=== PATIENT | male | born 1960 | race Caucasian/White ===

== ENCOUNTER → 2020-04-02 | Outpatient (CLI) | payer OTHER | LOC: SJCVCIMAG 09:02 | DX: R94.31 Abnormal electrocardiogram [ECG] [EKG] (principal); E78.5 Hyperlipidemia, unspecified; R06.09 Other forms of dyspnea ==

== ENCOUNTER → 2020-05-05 | Outpatient (CLI) | payer OTHER | LOC: CAT 14:35 | PROVIDERS: ATTEND General Practice | DX: Z13.6 Encounter for screening for cardiovascular disorders (principal); I25.10 Atherosclerotic heart disease of native coronary artery without angina pectoris; E78.00 Pure hypercholesterolemia, unspecified ==

== ENCOUNTER → 2021-05-12 | Outpatient (CLI) | payer OTHER | LOC: SJCVCIMAG 07:30 | PROVIDERS: ATTEND Internal Medicine Cardiovascular Disease | DX: I07.1 Rheumatic tricuspid insufficiency (principal); I25.10 Atherosclerotic heart disease of native coronary artery without angina pectoris; I48.91 Unspecified atrial fibrillation; E78.5 Hyperlipidemia, unspecified; R06.00 Dyspnea, unspecified ==

== ENCOUNTER → 2021-05-29 | Outpatient (CLI) | payer OTHER ==
[~2021-05-29] VITALS: Ht 188 cm; Wt 105.9 kg
[~2021-05-29] MED LIST: PACERONE200 MG PO; ROSUVASTATIN CA20 MG PO; TOPROL XL50 MG PO; XARELTO20 MG PO
[2021-05-29 07:18] VITALS: BP 117/76
--- NOTE | 2021-05-29 09:27 | TEE ---
[facility] [place] [address] TRANSESOPHAGEAL ECHOCARDIOGRAM Name: MARLENY TOMAS A [id number] Admission: 05/29/21 Attend Phys: Karthikeyan Valera MD Discharge: Date of : 62 Report #: [id number] THIS REPORT FOR: cc: John Lawton MD, Troy A. MD Lundgren, Craig H. MD [facility] ~ APPROVED REPORT Study performed: 05/29/2021 07:50:46 EXAM: Transesophageal Echocardiogram with Doppler and cardioversion Patient Location: Out-Patient Room #: 9 Status: routine BSA: 2.31 HR: 80 bpm BP: 125/85 mmHg Rhythm: Atrial Fibrillation Other Information Study Quality: Excellent Indications Atrial Fibrillation Echo Enhancing Agent Indication: Rule out Shunt Agent(s) / Amount(s) Used: Agitated Saline 7 cc Procedure After obtaining informed consent, patient underwent transesophageal echo in the [employer]. Type of Sedation : Conscious Sedation Sedation was administered by Mendy Mena RN. Sedation start time: 814 Case end Time: 824 Sedation was achieved intravenously with: Versed (4.5 mg) Fentanyl (50 mcg) Transesophageal probe was inserted and advanced into esophagus without difficulty by Chevy Cardenas MD. Echo enhancement indication: R/O Septal defect. Echo enhancement agent administered: Agitated Saline The JUAN was performed without complications. Synchronized Cardioversion acheived with 120 Joules after 1 [facility] [address] [place] [address] TRANSESOPHAGEAL ECHOCARDIOGRAM Name: MARLENY TOMAS Room #: REG [facility]#: [id number] Admission: 05/29/21 Attend Phys: Karthikeyan Valera Discharge: Date of : 62 Report #: [id number] attempt(s). Rhythm following Synchronized Cardioversion: Normal Sinus Rhythm Throughout the procedure, the blood pressure, pulse oximetry, cardiac rhythm, and rate were monitored. The patient tolerated the procedure without adverse effects. Recovery from conscious sedation was uneventful and vital signs were stable. Left Ventricle Left ventricle is dilated. There is global hypokinesis of the left ventricle. There is normal left ventricular wall thickness. Left ventricular ejection fraction is moderately decreased. LVEF 30-35%. Right Ventricle The right ventricle is normal size. The right ventricular systolic function is normal. Atria Left atrium is mildly dilated. No thrombus is visualized in the left atrium or appendage. No shunting by contrast bubble injection The right atrium size is normal. Aortic Valve The aortic valve is normal in structure. No aortic regurgitation is present. There is no aortic valvular stenosis. Mitral Valve The mitral valve is normal in structure. Mild mitral regurgitation. No evidence of mitral valve stenosis. Tricuspid Valve The tricuspid valve is normal in structure. There is no tricuspid valve regurgitation noted. Pulmonic Valve The pulmonary valve is normal in structure. There is no pulmonic valvular regurgitation. Great Vessels The aortic root is normal in size. The ascending aorta is normal in size. IVC is normal in size and collapses >50% with inspiration. Pericardium There is no pericardial effusion. [facility] [address] [place] [address] TRANSESOPHAGEAL ECHOCARDIOGRAM Name: WARRENMARLENY [facility] [id number] Admission: 05/29/21 Attend Phys: [facility] Discharge: Date of : 62 Report #: [id number] <Conclusion> Left ventricular ejection fraction is moderately decreased. There is global hypokinesis of the left ventricle. LVEF 30-35%. Left atrium is mildly dilated. No thrombus is visualized in the left atrium or appendage. No shunting by contrast bubble injection The aortic valve is normal in structure. No aortic regurgitation or stenosis. The mitral valve is normal in structure. Mild mitral regurgitation. There is no pericardial effusion. Successful cardioversion of atrial fibrillation to sinus rhythm following a single 120 J biphasic synchronous shock <ELECTRONICALLY SIGNED> By: Chevy Cardenas MD, FACC 05/29/21926 6 6 Chevy Cardenas MD, FACC /INF
== END | disposition home or self-care (01) ==
LOC: CATH 06:34
PROVIDERS: ATTEND Internal Medicine Cardiovascular Disease
DX: I48.91 Unspecified atrial fibrillation (principal); I34.9 Nonrheumatic mitral valve disorder, unspecified; R53.83 Other fatigue; I25.10 Atherosclerotic heart disease of native coronary artery without angina pectoris; E78.5 Hyperlipidemia, unspecified; I42.9 Cardiomyopathy, unspecified; Z98.890 Other specified postprocedural states; Z79.899 Other long term (current) drug therapy; Z20.822 Contact with and (suspected) exposure to COVID-19; Z82.49 Family history of ischemic heart disease and other diseases of the circulatory system; Z79.01 Long term (current) use of anticoagulants

== ENCOUNTER → 2021-06-29 | Outpatient (CLI) | payer OTHER ==
[~2021-06-29] VITALS: Ht 188 cm; Wt 102.1 kg
[2021-06-29 07:37] VITALS: BP 106/67
--- NOTE | 2021-06-29 09:50 | EKG ---
[place] [address] [address] [facility] [place] [address] ELECTROCARDIOGRAM REPORT Name: MARLENY TOMAS A Room #: REG [facility]#: [id number] Admission: 06/29/21 Attend Phys: Chevy Cardenas MD, Discharge: Date of : 62 Report #: [id number] [facility] Test Date: 2021-06-29 Test Time: 09:02:02 Pat Name: MARLENY TOMAS Department: Room: Gender: [employer]: SBULOW : 1960 Requested By: Chevy Cardenas Order Number: [id number] MD: Alfonso Taveras Measurements Intervals [place] Rate: 52 P: 49 ID: 202 QRS: -15 QRSD: 126 T: -36 QT: 484 QTc: 451 Interpretive Statements Sinus rhythm Borderline prolonged ID interval Probable left atrial enlargement Nonspecific intraventricular conduction delay Borderline T abnormalities, inferior leads No previous ECG available for comparison Electronically Signed On 06-29-2021 9:50:02 CDT by Alfonso Taveras [email or web address] <ELECTRONICALLY SIGNED> By: Alfonso Taveras MD, [facility] 06/29/2150 1 1 Alfonso Taveras MD, FACC /EPI
--- NOTE | 2021-06-30 10:26 | CATHLAB ---
[facility] [place] [address] INVASIVE PROCEDURE REPORT Name: MARLENY TOMAS Room #: REG [facility]#: [id number] Admission: 06/29/21 Attend Phys: Chevy Cardenas MD, Discharge: Date of : 62 Report #: [id number] THIS REPORT FOR: cc: John Lawton MD, Troy A. MD Lundgren, Craig H. MD [facility] ~ DATE OF SERVICE: 06/29/2021 PROCEDURE: Cardioversion. INDICATION: Atrial fibrillation. DESCRIPTION OF PROCEDURE: The potential benefits and risks of the procedure were discussed at length with the patient who understood. Full written and informed consent was obtained. The patient was sedated with intravenous Versed and fentanyl. 150 biphasic synchronous joules were applied to the chest with prompt conversion of atrial fibrillation to sinus rhythm. He remained in hemodynamically, electrically and neurologically stable condition following the procedure. SUMMARY: Successful cardioversion of atrial fibrillation to sinus rhythm following a single 150 joule biphasic synchronous shock. <ELECTRONICALLY SIGNED> By: Chevy Cardenas MD, [facility] 06/30/21 1026 1149 2255 Chevy Cardenas MD, FAC /nt
== END | disposition home or self-care (01) ==
LOC: CATH 07:04
PROVIDERS: ATTEND Internal Medicine
DX: I48.91 Unspecified atrial fibrillation (principal); I42.9 Cardiomyopathy, unspecified; I25.10 Atherosclerotic heart disease of native coronary artery without angina pectoris; E78.5 Hyperlipidemia, unspecified; Z98.890 Other specified postprocedural states; Z79.899 Other long term (current) drug therapy; Z79.01 Long term (current) use of anticoagulants

== ENCOUNTER → 2021-08-06 | Outpatient (CLI) | payer OTHER | LOC: SJCVCIMAG 11:04 | PROVIDERS: ATTEND Internal Medicine | DX: I48.91 Unspecified atrial fibrillation (principal); R06.00 Dyspnea, unspecified; I25.10 Atherosclerotic heart disease of native coronary artery without angina pectoris; I42.9 Cardiomyopathy, unspecified; E78.5 Hyperlipidemia, unspecified ==

== ENCOUNTER → 2021-09-18 | Outpatient (CLI) | payer OTHER ==
[2021-09-18 10:57] LABS: ABSOLUTE NEUTROPHILS 3.8 thou/uL (1.4-8.2); BASOPHILS 0.6 % (0.0-2.0); EOSINOPHILS 4.2 % (0.0-3.0); HEMATOCRIT 44.8 % (42.0-52.0); LYMPHOCYTES 22.2 % (24.0-44.0); MCHC 33.5 g/dL (28.0-37.0); MCV 92.4 fL (80.0-100.0); MONOCYTES 10.1 % (1.0-8.0); PLATELET COUNT 206 thou/uL (150-400); POLYS 62.9 % (36.0-66.0); RBC 4.84 mil/uL (4.50-6.00); RDW 13.9 % (10.5-14.5); WBC 6.1 thou/uL (4.0-11.0)
[2021-09-18 11:22] LABS: CALCIUM 9.4 mg/dL (8.5-10.1); CREATININE 1.1 mg/dL (0.7-1.3); POTASSIUM 4.3 mmol/L (3.5-5.1); TOTAL BILIRUBIN 0.5 mg/dL (0.2-1.0); TOTAL PROTEIN 7.4 g/dL (6.4-8.2)
== END ==
LOC: CAT 09:30
PROVIDERS: ATTEND Internal Medicine Cardiovascular Disease
DX: Z01.818 Encounter for other preprocedural examination (principal); I48.91 Unspecified atrial fibrillation; M47.814 Spondylosis without myelopathy or radiculopathy, thoracic region

== ENCOUNTER → 2021-09-21 | Outpatient (CLI) | payer OTHER ==
[~2021-09-21] VITALS: Ht 188 cm; Wt 109.3 kg
--- NOTE | ~2021-09-21 | P ---
[facility] [place] [address] PROCEDURE REPORT Name: MARLENY TOMAS A [id number] Admission: 09/21/21 Attend Phys: Karthikeyan Valera MD Discharge: Date of : 62 Report #: [id number] THIS REPORT FOR: cc: John Lawton MD, Troy A. MD Couchonnal, Luis F. MD ~ DATE OF SERVICE: 09/21/2021 DATE OF PROCEDURE: 09/21/2021 PREOPERATIVE DIAGNOSIS: Atrial fibrillation/atrial flutter. POSTOPERATIVE DIAGNOSIS: Atrial fibrillation/atrial flutter. PROCEDURES PERFORMED: 1. Atrial fibrillation ablation, CPT code 19727. 2. 3D mapping, CPT code 09188. 3. Program stimulation pacing after IV drug infusion, CPT code 82600. 4. Intracardiac echo, CPT code 67317. 5. Second pathway ablation -- CPT code 07903. ANESTHESIA: The patient underwent general anesthesia. No anesthesia related complications. DESCRIPTION OF PROCEDURE: The patient wore informed consent, the patient was then brought to the EP laboratory in fasting and sedated state, prepped and draped in a standard fashion, obtained access in the right femoral vein x 3, placing an 8, 9 and 7-Dominican short sheath using the modified Seldinger technique. Decapolar catheter was placed easily in the coronary sinus, ICE catheter was placed in the right atrium. Using intracardiac ultrasound, I verified there were 2 left and 2 right pulmonary veins. The patient was in sinus rhythm at the beginning of the case. The patient was systemically heparinized. Transseptal was performed using an SL1 sheath and a Foster needle, which was straightforward and I exchanged for the cryosheath and placing the Lasso catheter in the left atrium. Next a 3D voltage map and 3 D geometry of the left atrium was created. Then, I started isolating the pulmonary veins, the left superior pulmonary vein underwent a 4-minute freeze and isolated at 90 seconds left inferior pulmonary vein underwent 4-minute freeze and isolated at 59 seconds. The right inferior pulmonary vein underwent a 3-minute freeze isolating at 57 seconds. The right inferior pulmonary vein underwent a 3-minute freeze and isolated at 35 seconds. Phrenic nerve pacing was performed with a decapolar catheter placed in the subclavian vessel and there was never phrenic nerve compromise. Next EP study was performed and AV block was noted at 380 milliseconds. [facility] [address] [place] [address] PROCEDURE REPORT Name: MARLENY TOMAS Room #: REG [facility]#: [id number] Admission: 09/21/21 Attend Phys: Karthikeyan Valera MD Discharge: Date of : 62 Report #: [id number] A single atrial extrastimuli were delivered and AV andi ERP was noted at 350 milliseconds at a [address] cycle length. With ventricular pacing, we did induce atrial flutter. Therefore, we decided to proceed with atrial flutter ablation. Atrial flutter ablation 8 mm ablation catheter was placed in the right atrium via a ramp sheath. Preablation transisthmus conduction time was 70 milliseconds. Post-ablation was 125 milliseconds with evidence of bidirectional block. Ablation was performed at 70 [place] and 60 degrees. Next, a repeat EP study was performed. An isoproterenol 2 mcg per minute and AV block was noted at 220 milliseconds. Atrial ERP was noted at 210 milliseconds at a [address] cycle length. Post-ablation, I could not induce any AFib or atrial flutter, nor any other forms of SVT. As such, the procedure was concluded. There was no evidence of pericardial effusion. The patient received systemic protamine and all catheters and sheaths were pulled. Hemostasis was obtained. CONCLUSION: 1. Successful AFib ablation and isolation of the pulmonary veins. 2. Successful atrial flutter ablation with bidirectional block. By: 1149 0115 Karthikeyan Valera MD /nt
[2021-09-21 07:26] VITALS: BP 126/67
[2021-09-21 07:39] LABS: ABSOLUTE NEUTROPHILS 2.9 thou/uL (1.4-8.2); BASOPHILS 0.8 % (0.0-2.0); EOSINOPHILS 4.2 % (0.0-3.0); HEMATOCRIT 41.3 % (42.0-52.0); HEMOGLOBIN 14.3 gm/dL (14.0-18.0); LYMPHOCYTES 30.9 % (24.0-44.0); MCH 31.5 pg (26.0-34.0); MCHC 34.5 g/dL (28.0-37.0); MCV 91.2 fL (80.0-100.0); PLATELET COUNT 177 thou/uL (150-400); POLYS 52.1 % (36.0-66.0); RBC 4.53 mil/uL (4.50-6.00); RDW 14.3 % (10.5-14.5); WBC 5.5 thou/uL (4.0-11.0)
[2021-09-21 07:47] LABS: CALCIUM 9.2 mg/dL (8.5-10.1); POTASSIUM 3.8 mmol/L (3.5-5.1)
[2021-09-21 07:53] LABS: TOTAL BILIRUBIN 0.5 mg/dL (0.2-1.0); TOTAL PROTEIN 7.1 g/dL (6.4-8.2)
[2021-09-21 07:55] LABS: APTT 31.1 Seconds (24.5-32.8); INR 0.98; PROTIME 10.7 Seconds (10.5-12.1)
== END | disposition home or self-care (01) ==
LOC: CATH 06:34
PROVIDERS: ATTEND Internal Medicine Cardiovascular Disease
DX: I48.91 Unspecified atrial fibrillation (principal); I48.92 Unspecified atrial flutter; E78.5 Hyperlipidemia, unspecified; I42.9 Cardiomyopathy, unspecified; I49.9 Cardiac arrhythmia, unspecified; Z98.890 Other specified postprocedural states; Z79.899 Other long term (current) drug therapy
CPT/HCPCS: 62110; 62900; 65020; 70005

== ENCOUNTER → 2021-11-02 | Outpatient (CLI) | payer OTHER | END | disposition home or self-care (01) | LOC: SJCVCIMAG 07:34 | PROVIDERS: ATTEND Internal Medicine | DX: R00.1 Bradycardia, unspecified (principal); I48.91 Unspecified atrial fibrillation; I25.10 Atherosclerotic heart disease of native coronary artery without angina pectoris; R06.00 Dyspnea, unspecified; I42.9 Cardiomyopathy, unspecified; E78.5 Hyperlipidemia, unspecified; R93.1 Abnormal findings on diagnostic imaging of heart and coronary circulation; R07.89 Other chest pain; R51.9 Headache, unspecified; Z95.2 Presence of prosthetic heart valve; Z79.899 Other long term (current) drug therapy ==